=== PATIENT | male | born 1955 | race Caucasian/White ===

== ENCOUNTER 2017-05-28 23:39 | Inpatient (IN) | payer BC ==
[2017-05-28] MEDS ORDERED: Ondansetron 4 MG/2 ML SDV IVPUSH ONE (23:45)
[2017-05-28] MEDS: Sodium Chloride 0.9% 10 ML Syringe FLUSH PRN ×2 (23:52→23:53)
[2017-05-29] MEDS ORDERED: HYDROmorphone 2 MG/ML SDV IVPUSH ONE (00:13)
[2017-05-29] MEDS: Sodium Chloride 0.9% 10 ML Syringe FLUSH PRN (00:37)
[2017-05-29] MEDS ORDERED: Sodium Chloride 0.9% 1,000 ML IV ONE (01:03)
[2017-05-29] MEDS ORDERED: Iopamidol 755 Mg/ML 75 ML Bottle IV ONE (01:30)
[2017-05-29] MEDS ORDERED: Lactated Ringers 1,000 ML IV SCH (03:15)
[2017-05-29] MEDS ORDERED: Albuterol 8 GM Inhaler INH PRN (03:18)
[2017-05-29] MEDS: Ondansetron 4 MG/2 ML SDV IV PRN ×3 (03:42→21:24)
[2017-05-29] MEDS: HYDROmorphone 2 MG/ML SDV IVPUSH PRN ×7 (03:42→21:27)
[2017-05-29] MEDS ORDERED: D5 1/2 NS w/ 20 mEq/L KCl 1,000 ML IV SCH (03:45)
[2017-05-29] MEDS ORDERED: Dextrose 5%-Lactated Ringers 1,000 ML IV SCH (08:00)
[2017-05-29] MEDS: Pantoprazole 40 MG Vial IVPUSH SCH (08:42)
[2017-05-29] MEDS: Dextrose 5%-Lactated Ringers 1,000 ML IV SCH ×3 (08:45→20:01)
[2017-05-29] MEDS ORDERED: Non-Formulary Medication 1 Each (Fluticasone/Salmeterol [Advair 250-50 Diskus] 1 PUFF) INH SCH (09:00)
[2017-05-29] MEDS: Formoterol/Mometasone 200-5 MCG 8.8 GM Inhaler IH SCH ×2 (09:30→21:33)
[2017-05-29] MEDS: Albuterol/Ipratropium 3.0-0.5 MG/3 ML Neb Soln NEB SCH ×4 (10:08→21:35)
[2017-05-29] MEDS ORDERED: FLU Vacc QS 2017-18 (36mos UP)/PF 60 MCG/0.5 ML Syringe IM ONE (10:09)
--- NOTE | 2017-05-29 10:58 | CR ---
INDICATION: Small-bowel obstruction, tube placement. CHEST: A single frontal view of the chest was obtained AP supine and revealed the heart to be normal in size and shape. The aorta is somewhat tortuous. A definite active infiltrate or effusion was not identified. Nasogastric tube is noted looped in the upper third of the esophagus with its end tip in the cervical esophagus - pharynx and the lower portion of the loop just above the frank. IMPRESSION: 1. Retract and replace nasogastric tube. 2. Mild ASD aorta. 3. No definite acute process. MTDD
--- NOTE | 2017-05-29 11:00 | CR ---
INDICATION: Small-bowel obstruction, tube placement. CHEST: A single supine view of the chest was obtained and revealed the nasogastric tube with its tip in the gastric fundus. It should be advanced at least 15 cm for better positioning. No other change is noted compared with the previous examination. MTDD
--- NOTE | 2017-05-29 13:42 | CR ---
INDICATION: COPD. CHEST: PA and lateral views of the chest 05/29/2017 were compared with an earlier chest x-ray obtained supine of the same date. The heart remains normal in size and shape. Minimal calcification may be present in the aorta. Nasogastric tube is noted in place with its tip in the gastric fundus and its secondary - more proximal opening - in the distal esophagus. It should be advanced approximately 15 cm for better positioning. Linear density is noted in the right upper lateral lung field and may represent fibrosis or possibly linear atelectasis. A definite active infiltrate or effusion was not identified. Hyperaeration, AP diameter prominence, and flattened diaphragm leaves suggest COPD. IMPRESSION: 1. No definite acute process - linear atelectasis versus fibrosis right upper lung field. 2. COPD. 3. ASD aorta. MTDD
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
[2017-05-30] MEDS: HYDROmorphone 2 MG/ML SDV IVPUSH PRN ×4 (02:37→13:55)
[2017-05-30] MEDS: Dextrose 5%-Lactated Ringers 1,000 ML IV SCH ×3 (02:42→16:35)
--- NOTE | 2017-05-30 07:14 | PCM.PN ---
- General Info Date of Service: 05/30/17 Admission Dx/Problem (Free Text): Small Bowel Obstruction Functional Status: Reports: Pain Controlled (Occasional moderate pain but mostly comfortable) - Review of Systems General: Denies: Fever Cardiovascular: Reports: No Symptoms Gastrointestinal: Denies: Flatus (No BM) Musculoskeletal: Reports: No Symptoms - Patient Data Vitals - Most Recent: Last Vital Signs Temp 98 F 05/30/17 03:00 Pulse 64 05/30/17 03:00 Resp 20 05/30/17 03:00 BP 122/79 05/30/17 03:00 Pulse Ox 96 05/30/17 03:00 Weight - Most Recent: 110 lb 11.2 oz I&O - Last 24 Hours: Intake & Output 05/29/17 05/30/17 05/30/17 22:59 06:59 14:59 Intake Total 1220 1165 Output Total 525 475 Balance 695 690 Lab Results Last 24 Hours: Laboratory Results - last 24 hr 05/29/17 05/29/17 05/29/17 Range/Units 06:30 06:30 11:08 WBC (4.5-12.0) X10-3/uL RBC (4.30-5.75) x10(6)uL Hgb (11.5-15.5) g/dL Hct (30.0-51.3) % MCV (80-96) fL MCH (27.7-33.6) pg MCHC (32.2-35.4) g/dL RDW (11.5-15.5) % Plt Count (125-369) X10(3)uL MPV (7.4-10.4) fL Neutrophils % (Manual) 84 H (46-82) % Lymphocytes % (Manual) 7 L (13-37) % Monocytes % (Manual) 9 (4-12) % Hypersegmented Neuts Occasional Macrocytosis Moderate H Sodium (135-145) mmol/L Potassium (3.5-5.3) mmol/L Chloride (100-110) mmol/L Carbon Dioxide (23-29) mmol/L BUN (8-23) mg/dL Creatinine (0.6-1.3) mg/dL Est Cr Clr Drug Dosing mL/min Estimated GFR (MDRD) (>60) BUN/Creatinine Ratio (9-20) Glucose (80-116) mg/dL Troponin I 0.05 (0.02-0.06) NG/ML Urine Color Yellow (YELLOW) Urine Appearance Slightly cloudy (CLEAR) Urine pH 6.5 (5.0-6.5) Ur Specific [place] 1.015 (1.010-1.025) Urine Protein Negative (NEGATIVE) mg/dL Urine Glucose (UA) Normal (NEGATIVE) mg/dL Urine Ketones 15 H (NEGATIVE) mg/dL Urine Occult Blood Negative (NEGATIVE) Urine Nitrite Negative (NEGATIVE) Urine Bilirubin Negative (NEGATIVE) Urine Urobilinogen Normal (NEGATIVE) mg/dL Ur Leukocyte Esterase Negative (NEGATIVE) Urine RBC 0-5 (0) Urine WBC 0-5 (0) Ur Squamous Epith Cells Rare (NS,R,O) Urine Bacteria Rare H (NS) Urine Mucus Few H (NS) 05/30/17 05/30/17 Range/Units 06:10 06:10 WBC 10.8 (4.5-12.0) X10-3/uL RBC 4.18 L (4.30-5.75) x10(6)uL Hgb 15.1 (11.5-15.5) g/dL Hct 43.3 (30.0-51.3) % MCV 103.5 H (80-96) fL MCH 36.0 H (27.7-33.6) pg MCHC 34.8 (32.2-35.4) g/dL RDW 13.3 (11.5-15.5) % Plt Count 166 (125-369) X10(3)uL MPV 8.3 (7.4-10.4) fL Neutrophils % (Manual) (46-82) % Lymphocytes % (Manual) (13-37) % Monocytes % (Manual) (4-12) % Hypersegmented Neuts Macrocytosis Sodium 130 L (135-145) mmol/L Potassium 3.8 (3.5-5.3) mmol/L Chloride 97 L (100-110) mmol/L Carbon Dioxide 28 (23-29) mmol/L BUN 7 L (8-23) mg/dL Creatinine 0.7 (0.6-1.3) mg/dL Est Cr Clr Drug Dosing 79.70 mL/min Estimated GFR (MDRD) > 60 (>60) BUN/Creatinine Ratio 10.0 (9-20) Glucose 138 H (80-116) mg/dL Troponin I (0.02-0.06) NG/ML Urine Color (YELLOW) Urine Appearance (CLEAR) Urine pH (5.0-6.5) Ur Specific [place] (1.010-1.025) Urine Protein (NEGATIVE) mg/dL Urine Glucose (UA) (NEGATIVE) mg/dL Urine Ketones (NEGATIVE) mg/dL Urine Occult Blood (NEGATIVE) Urine Nitrite (NEGATIVE) Urine Bilirubin (NEGATIVE) Urine Urobilinogen (NEGATIVE) mg/dL Ur Leukocyte Esterase (NEGATIVE) Urine RBC (0) Urine WBC (0) Ur Squamous Epith Cells (NS,R,O) Urine Bacteria (NS) Urine Mucus (NS) Med Orders - Current: Current Medications Albuterol (Ventolin Hfa) 0 gm INH Q4H PRN PRN Reason: Dyspnea Albuterol/Ipratropium (Duoneb 3.0-0.5 Mg/3 Ml) 3 ml NEB QIDRT [facility] Last Admin: 05/29/17 21:35 Dose: 3 ml Hydromorphone HCl (Dilaudid) 1 mg IVPUSH Q2H PRN PRN Reason: Pain (severe 7-10) Last Admin: 05/30/17 06:20 Dose: 1 mg Dextrose/Lactated Ringer's (Dextrose 5%-Lactated Ringers) 1,000 mls @ 150 mls/ hr IV ASDIRECTED [facility] Last Admin: 05/30/17 02:42 Dose: 200 mls/hr Mometasone Furoate/Formoterol Fumar (Dulera 200-5 Mcg) 0 puff IH BID [facility] Last Admin: 05/29/17 21:33 Dose: 1 puff Ondansetron HCl (Zofran) 4 mg IV Q4H PRN PRN Reason: Nausea/Vomiting Last Admin: 05/29/17 21:24 Dose: 4 mg Pantoprazole Sodium (Protonix Iv) 40 mg IVPUSH DAILY [facility] Last Admin: 05/29/17 08:42 Dose: 40 mg Sodium Chloride (Saline Flush) 10 ml FLUSH ASDIRECTED PRN PRN Reason: Keep Vein Open Last Admin: 05/29/17 00:37 Dose: 10 ml Discontinued Medications Hydromorphone HCl (Dilaudid) 2 mg IVPUSH ONETIME ONE Stop: 05/29/17 00:14 Last Admin: 05/29/17 00:35 Dose: 2 mg Sodium Chloride (Normal Saline) 1,000 mls @ 999 mls/hr IV .BOLUS ONE Stop: 05/29/17 02:03 Last Admin: 05/29/17 01:18 Dose: 999 mls/hr Lactated Ringer's (Ringers, Lactated) 1,000 mls @ 999 mls/hr IV .BOLUS ZACH Last Admin: 05/29/17 03:39 Dose: 999 mls/hr Potassium Chloride/Dextrose/Sod Cl (D5 1/2 Ns W/ 20 Meq/L Kcl) 1,000 mls @ 100 mls/hr IV ASDIRECTED [facility] Last Admin: 05/29/17 04:50 Dose: 100 mls/hr Dextrose/Lactated Ringer's (Dextrose 5%-Lr) 1,000 mls @ 200 mls/hr IV ASDIRECTED [facility] Influenza Virus Vaccine (Fluzone Quad [id number]) 60 mcg IM .ONCE ONE Stop: 05/29/17 10:10 Iopamidol (Isovue-370 (76%)) 75 ml IV ONETIME ONE Stop: 05/29/17 01:31 Last Admin: 05/29/17 02:00 Dose: 65 ml Non-Formulary Medication (Fluticasone/Salmeterol [Advair 250-50 Diskus]) 1 puff INH BID [facility] Ondansetron HCl (Zofran) 4 mg IVPUSH ONETIME ONE Stop: 05/28/17 23:46 Last Admin: 05/28/17 23:52 Dose: 4 mg - Exam General: Alert, Oriented Lungs: Normal Respiratory Effort GI/Abdominal Exam: Soft, Distended (Mildly firm, minimal tenderness with no guarding), Abnormal Bowel Sounds (hypoactive) - Problem List Review Problem List Initiated/Reviewed/Updated: Yes - My Orders Last 24 Hours: My Active Orders 05/29/17 08:51 Dextrose 5%-Lactated Ringers 1,000 ml IV ASDIRECTED 05/29/17 09:00 Pantoprazole [ProTONIX IV] 40 mg IVPUSH DAILY 05/29/17 14:45 Insert Urinary Catheter [OM.PC] Q24H 05/30/17 06:10 CBC WITH MANUAL DIFF [HEME] AM - Assessment Assessment:: Small bowel obstruction - NG output low but no flatus or BM - Plan Plan:: Will observe with continued NG suction and IV hydration for now but if no improvement soon will need laparotomy
[2017-05-30] MEDS: Albuterol/Ipratropium 3.0-0.5 MG/3 ML Neb Soln NEB SCH ×6 (07:23→22:50)
[2017-05-30] MEDS: Formoterol/Mometasone 200-5 MCG 8.8 GM Inhaler IH SCH ×2 (08:12→22:55)
[2017-05-30] MEDS: Pantoprazole 40 MG Vial IVPUSH SCH (08:13)
--- NOTE | 2017-05-30 17:01 | PCM.PN ---
- General Info Date of Service: 05/30/17 - Review of Systems Systems Review Comment:: Patient states he feels a little better but continues to have no BM or flatus. Abdomen soft with no tenderness but remains distended. NG output remains low to moderate. With continued obstipation it appears that the patient's obstruction is not resolving with attempted conservative management. I advised laparotomy with release of small bowel obstruction. I reviewed with the patient indications options and risks. He appears to understand and agrees to proceed. Will proceed tonight with this proposed surgery. - Patient Data Vitals - Most Recent: Last Vital Signs Temp 97.7 F 05/30/17 16:00 Pulse 80 05/30/17 15:26 Resp 18 05/30/17 16:00 BP 121/80 05/30/17 16:00 Pulse Ox 93 L 05/30/17 16:00 Weight - Most Recent: 110 lb 11.2 oz I&O - Last 24 Hours: Intake & Output 05/30/17 05/30/17 05/30/17 06:59 14:59 22:59 Intake Total 1165 1268 Output Total 475 675 200 Balance 690 593 -200 Lab Results Last 24 Hours: Laboratory Results - last 24 hr 05/30/17 05/30/17 Range/Units 06:10 06:10 WBC 10.8 (4.5-12.0) X10-3/uL RBC 4.18 L (4.30-5.75) x10(6)uL Hgb 15.1 (11.5-15.5) g/dL Hct 43.3 (30.0-51.3) % MCV 103.5 H (80-96) fL MCH 36.0 H (27.7-33.6) pg MCHC 34.8 (32.2-35.4) g/dL RDW 13.3 (11.5-15.5) % Plt Count 166 (125-369) X10(3)uL MPV 8.3 (7.4-10.4) fL Neutrophils % (Manual) 78 (46-82) % Lymphocytes % (Manual) 14 (13-37) % Monocytes % (Manual) 8 (4-12) % Macrocytosis Moderate H Sodium 130 L (135-145) mmol/L Potassium 3.8 (3.5-5.3) mmol/L Chloride 97 L (100-110) mmol/L Carbon Dioxide 28 (23-29) mmol/L BUN 7 L (8-23) mg/dL Creatinine 0.7 (0.6-1.3) mg/dL Est Cr Clr Drug Dosing 79.70 mL/min Estimated GFR (MDRD) > 60 (>60) BUN/Creatinine Ratio 10.0 (9-20) Glucose 138 H (80-116) mg/dL Calcium 8.2 L (8.6-10.2) mg/dL Med Orders - Current: Current Medications Albuterol (Ventolin Hfa) 0 gm INH Q4H PRN PRN Reason: Dyspnea Albuterol/Ipratropium (Duoneb 3.0-0.5 Mg/3 Ml) 3 ml NEB QIDRT [facility] Last Admin: 05/30/17 15:25 Dose: 3 ml Hydromorphone HCl (Dilaudid) 1 mg IVPUSH Q2H PRN PRN Reason: Pain (severe 7-10) Last Admin: 05/30/17 13:55 Dose: 1 mg Dextrose/Lactated Ringer's (Dextrose 5%-Lactated Ringers) 1,000 mls @ 150 mls/ hr IV ASDIRECTED [facility] Last Admin: 05/30/17 16:35 Dose: 150 mls/hr Mometasone Furoate/Formoterol Fumar (Dulera 200-5 Mcg) 0 puff IH BID [facility] Last Admin: 05/30/17 08:12 Dose: 2 puff Ondansetron HCl (Zofran) 4 mg IV Q4H PRN PRN Reason: Nausea/Vomiting Last Admin: 05/29/17 21:24 Dose: 4 mg Pantoprazole Sodium (Protonix Iv) 40 mg IVPUSH DAILY [facility] Last Admin: 05/30/17 08:13 Dose: 40 mg Sodium Chloride (Saline Flush) 10 ml FLUSH ASDIRECTED PRN PRN Reason: Keep Vein Open Last Admin: 05/29/17 00:37 Dose: 10 ml Discontinued Medications Hydromorphone HCl (Dilaudid) 2 mg IVPUSH ONETIME ONE Stop: 05/29/17 00:14 Last Admin: 05/29/17 00:35 Dose: 2 mg Sodium Chloride (Normal Saline) 1,000 mls @ 999 mls/hr IV .BOLUS ONE Stop: 05/29/17 02:03 Last Admin: 05/29/17 01:18 Dose: 999 mls/hr Lactated Ringer's (Ringers, Lactated) 1,000 mls @ 999 mls/hr IV .BOLUS [facility] Last Admin: 05/29/17 03:39 Dose: 999 mls/hr Potassium Chloride/Dextrose/Sod Cl (D5 1/2 Ns W/ 20 Meq/L Kcl) 1,000 mls @ 100 mls/hr IV ASDIRECTED [facility] Last Admin: 05/29/17 04:50 Dose: 100 mls/hr Dextrose/Lactated Ringer's (Dextrose 5%-Lr) 1,000 mls @ 200 mls/hr IV ASDIRECTED [facility] Influenza Virus Vaccine (Fluzone Quad [id number]) 60 mcg IM .ONCE ONE Stop: 05/29/17 10:10 Iopamidol (Isovue-370 (76%)) 75 ml IV ONETIME ONE Stop: 05/29/17 01:31 Last Admin: 05/29/17 02:00 Dose: 65 ml Non-Formulary Medication (Fluticasone/Salmeterol [Advair 250-50 Diskus]) 1 puff INH BID [facility] Ondansetron HCl (Zofran) 4 mg IVPUSH ONETIME ONE Stop: 05/28/17 23:46 Last Admin: 05/28/17 23:52 Dose: 4 mg - Problem List Review Problem List Initiated/Reviewed/Updated: Yes - Assessment Assessment:: Small bowel obstruction -not improving - Plan Plan:: Laparotomy with Release of Small Bowel Obstruction
[2017-05-30] MEDS ORDERED: ceFAZolin 1 GM Vial IV ONE (18:00)
[2017-05-30] MEDS ORDERED: Neostigmine Methylsulfate 10 MG/10 ML MDV IVPUSH ONE (18:00)
[2017-05-30] MEDS ORDERED: Dexamethasone 4 MG/ML 5 ML MDV IVPUSH ONE (18:00)
[2017-05-30] MEDS ORDERED: Succinylcholine 200 MG/10 ML MDV IV ONE (18:00)
[2017-05-30] MEDS ORDERED: Lactated Ringers 1,000 ML IV ONE (18:00)
[2017-05-30] MEDS ORDERED: Midazolam 1 MG/ML 2 ML SDV IV ONE (18:00)
[2017-05-30] MEDS ORDERED: Ketorolac 30 MG/ML SDV IVPUSH ONE (18:00)
[2017-05-30] MEDS ORDERED: fentaNYL 100 MCG/2 ML SDV IV ONE (18:00)
[2017-05-30] MEDS ORDERED: Ondansetron 4 MG/2 ML SDV IVPUSH ONE (18:00)
[2017-05-30] MEDS ORDERED: Rocuronium 100 MG/10 ML MDV IV ONE (18:00)
[2017-05-30] MEDS ORDERED: Propofol 200 MG/20 ML SDV IV ONE (18:00)
[2017-05-30] MEDS ORDERED: Glycopyrrolate 0.2 MG/ML 5 ML MDV IV ONE (18:00)
[2017-05-30] MEDS ORDERED: Sodium Chloride 0.9% 500 ML IV ONE (18:00)
[2017-05-30] MEDS ORDERED: Phenylephrine 1% 10 MG/ML SDV IV ONE (18:00)
[2017-05-30] MEDS ORDERED: Ondansetron 4 MG/2 ML SDV IVPUSH PRN (20:41)
--- NOTE | 2017-05-30 20:41 | PCM.OPNOTE ---
- General Post-Op/Procedure Note Date of Surgery/Procedure: 05/30/17 Operative Procedure(s): Exploratory Laparotomy with Lysis of Adhesions Findings: Complete small bowel obstruction from adhesions Thin abdominal wall post hernia repair Pre Op Diagnosis: Small Bowel Obstruction Post-Op Diagnosis: Same Anesthesia Technique: General ET Tube Primary Surgeon: Oliver Tellez Pathology: Adhesion EBL in mLs: 300 Complications: None Condition: Good Free Text/Narrative:: Intake & Output 05/30/17 05/30/17 05/30/17 06:59 14:59 22:59 Intake Total 1165 1268 Output Total 475 675 200 Balance 690 593 -200
[2017-05-30] MEDS ORDERED: Morphine PF 30 MG/30 ML PCA Vial IV SCH (20:45)
[2017-05-30] MEDS ORDERED: Morphine 2 MG/ML Syringe IVPUSH PRN (20:57)
[2017-05-30] MEDS ORDERED: ceFAZolin 1 GM in Sodium Chloride 0.9% 50 ML IV SCH (21:00)
[2017-05-31] MEDS: Morphine 2 MG/ML Syringe IVPUSH PRN ×7 (00:09→19:31)
--- NOTE | 2017-05-31 01:14 | OR ---
DATE OF OPERATION: 05/30/2017 SURGEON: Oliver Tellez MD PREOPERATIVE DIAGNOSIS: Small bowel obstruction. POSTOPERATIVE DIAGNOSIS: Small bowel obstruction secondary to adhesions. OPERATION PERFORMED: Exploratory laparotomy with lysis of adhesions. INDICATIONS FOR SURGERY: This 61-year-old male presented to the emergency room with symptoms of abdominal pain and vomiting. A CT scan was performed, which showed findings consistent with a small-bowel obstruction. The patient was admitted and has been observed on NG suction and IV hydration. Despite a period of observation, his obstruction has not relieved and he comes for exploratory laparotomy. FINDINGS: The patient has a complete obstruction in the region of the proximal ileum. The bowel proximal to this is dilated and distal to that is completely flat and decompressed. The bowel did appear to be vascularly viable, but there were extensive and thick adhesions in the area of the obstruction and along other areas of the small bowel. The patient's abdominal wall is very thin and required extensive dissection to separate the skin off the fascia, which had previously been reinforced with mesh from a previous hernia repair. PROCEDURE IN DETAIL: The patient was taken to the operating room. He was given general endotracheal anesthesia and the abdomen was sterilely prepped and draped. A short vertical midline incision was made and carefully dissection proceeded down through the fascia into the abdominal cavity. With very careful dissection, the bowel and omentum were gradually from the anterior abdominal wall and as clear space was achieved, the abdominal wall incision was extended until it had reached an adequate length for exploration. Carefully, the small bowel was examined, able to be mobilized, and with persistent careful manipulation and lysis of adhesions, loops of bowel were able to be brought out of the abdominal cavity. Eventually, the dilated and collapsed bowel at the point of obstruction was able to be brought out. The small bowel was then carefully examined along its entire length and adhesions divided to be sure no points of obstruction remained. The fluid inside the small bowel was milked easily from the dilated portion into the more distal bowel loops indicating no intrinsic obstruction. After the adhesions had been lysed and careful inspection showed no sign of any bowel injury or other complication, the bowel was carefully placed back into the abdominal cavity. The patient's abdominal wall was very thin as described above and so a considerable time was taken carefully dissecting the skin off the thin abdominal wall fascia. This required very precise sharp dissection along the entire course of the incision until the intact but very thin fascia was able to be exposed adequately for closure. Adhesions to the undersurface of the fascia were also taken down, so placement of the sutures could be safely performed. The abdominal cavity was then copiously irrigated with saline and then the midline fascia was closed with interrupted #1 PDS II suture in a Smead-Uribe suturing technique. This did achieve a complete and what appeared to be solid closure of the midline fascia. The wound was then again irrigated and the skin was closed with skin chad. A sterile dressing was placed. The patient was awakened, extubated, and taken from the operating room in satisfactory condition. ESTIMATED BLOOD LOSS: 300 mL. COMPLICATIONS: None. PROGNOSIS: Good. /[id number] CHRIS/BREE PETERS
[2017-05-31] MEDS: ceFAZolin 1 GM in Sodium Chloride 0.9% 50 ML IV SCH ×2 (02:25→09:54)
[2017-05-31] MEDS: Lactated Ringers 1,000 ML IV SCH ×3 (04:28→20:32)
--- NOTE | 2017-05-31 07:41 | PCM.SURGPN ---
- General Info Date of Service: 05/31/17 Date of Surgery/Procedure: 05/30/17 POD#: 1 Post-Op Diagnosis: Small Bowel Obstruction secondary to adhesions Functional Status: Reports: Pain Controlled (Doing well with only intermittant MS IV) - Review of Systems Pulmonary: Reports: No Symptoms Cardiovascular: Reports: No Symptoms Gastrointestinal: Reports: Other (States abdomen feels better then pre-op). Denies: Flatus, Nausea, Vomiting Musculoskeletal: Reports: No Symptoms - Patient Data Vitals - Most Recent: Last Vital Signs Temp 98.9 F 05/31/17 04:19 Pulse 84 05/31/17 04:19 Resp 16 05/31/17 04:19 BP 90/56 L 05/31/17 04:19 Pulse Ox 95 05/31/17 04:19 Weight - Most Recent: 114 lb I&O - Last 24 Hours: Intake & Output 05/30/17 05/31/17 05/31/17 22:59 06:59 14:59 Intake Total 570 1090 Output Total 200 775 Balance 370 315 Lab Results Last 24 Hrs: Laboratory Results - last 24 hr 05/30/17 05/30/17 05/31/17 Range/Units 06:10 06:10 06:15 WBC 8.5 (4.5-12.0) X10-3/uL RBC 3.68 L (4.30-5.75) x10(6)uL Hgb 13.1 (11.5-15.5) g/dL Hct 38.4 (30.0-51.3) % MCV 104.4 H (80-96) fL MCH 35.6 H (27.7-33.6) pg MCHC 34.1 (32.2-35.4) g/dL RDW 12.9 (11.5-15.5) % Plt Count 147 (125-369) X10(3)uL Neutrophils % (Manual) 78 (46-82) % Lymphocytes % (Manual) 14 (13-37) % Monocytes % (Manual) 8 (4-12) % Macrocytosis Moderate H Potassium (3.5-5.3) mmol/L Calcium 8.2 L (8.6-10.2) mg/dL 05/31/17 Range/Units 06:15 WBC (4.5-12.0) X10-3/uL RBC (4.30-5.75) x10(6)uL Hgb (11.5-15.5) g/dL Hct (30.0-51.3) % MCV (80-96) fL MCH (27.7-33.6) pg MCHC (32.2-35.4) g/dL RDW (11.5-15.5) % Plt Count (125-369) X10(3)uL Neutrophils % (Manual) (46-82) % Lymphocytes % (Manual) (13-37) % Monocytes % (Manual) (4-12) % Macrocytosis Potassium 4.2 (3.5-5.3) mmol/L Calcium (8.6-10.2) mg/dL Med Orders - Current: Current Medications Albuterol (Ventolin Hfa) 0 gm INH Q4H PRN PRN Reason: Dyspnea Albuterol/Ipratropium (Duoneb 3.0-0.5 Mg/3 Ml) 3 ml NEB QIDRT [facility] Last Admin: 05/30/17 22:50 Dose: 3 ml Enoxaparin Sodium (Lovenox) 30 mg SUBCUT DAILY [facility] Lactated Ringer's (Ringers, Lactated) 1,000 mls @ 125 mls/hr IV ASDIRECTED [facility] Last Admin: 05/31/17 04:28 Dose: 125 mls/hr Cefazolin Sodium 1 gm/ Sodium (Chloride) 50 mls @ 200 mls/hr IV Q8H [facility] Stop: 05/31/17 10:14 Last Admin: 05/31/17 02:25 Dose: 200 mls/hr Mometasone Furoate/Formoterol Fumar (Dulera 200-5 Mcg) 0 puff IH BID [facility] Last Admin: 05/30/17 22:55 Dose: 2 puff Morphine Sulfate (Morphine) 2 mg IVPUSH Q1H PRN PRN Reason: Pain (severe 7-10) Last Admin: 05/31/17 06:12 Dose: 2 mg Morphine Sulfate (Morphine Buyer Broker 30 Mg In 30 Ml) 30 mg IV ASDIRECTED [facility] PRN Reason: Protocol Ondansetron HCl (Zofran) 4 mg IVPUSH Q6H PRN PRN Reason: Nausea/Vomiting Pantoprazole Sodium (Protonix Iv) 40 mg IVPUSH DAILY [facility] Sodium Chloride (Saline Flush) 10 ml FLUSH ASDIRECTED PRN PRN Reason: Keep Vein Open Last Admin: 05/29/17 00:37 Dose: 10 ml Discontinued Medications Albuterol/Ipratropium (Duoneb 3.0-0.5 Mg/3 Ml) 3 ml NEB QIDRT [facility] Last Admin: 05/30/17 22:45 Dose: Not Given Hydromorphone HCl (Dilaudid) 2 mg IVPUSH ONETIME ONE Stop: 05/29/17 00:14 Last Admin: 05/29/17 00:35 Dose: 2 mg Hydromorphone HCl (Dilaudid) 1 mg IVPUSH Q2H PRN PRN Reason: Pain (severe 7-10) Last Admin: 05/30/17 13:55 Dose: 1 mg Sodium Chloride (Normal Saline) 1,000 mls @ 999 mls/hr IV .BOLUS ONE Stop: 05/29/17 02:03 Last Admin: 05/29/17 01:18 Dose: 999 mls/hr Lactated Ringer's (Ringers, Lactated) 1,000 mls @ 999 mls/hr IV .BOLUS [facility] Last Admin: 05/29/17 03:39 Dose: 999 mls/hr Potassium Chloride/Dextrose/Sod Cl (D5 1/2 Ns W/ 20 Meq/L Kcl) 1,000 mls @ 100 mls/hr IV ASDIRECTED [facility] Last Admin: 05/29/17 04:50 Dose: 100 mls/hr Dextrose/Lactated Ringer's (Dextrose 5%-Lr) 1,000 mls @ 200 mls/hr IV ASDIRECTED [facility] Dextrose/Lactated Ringer's (Dextrose 5%-Lactated Ringers) 1,000 mls @ 150 mls/ hr IV ASDIRECTED [facility] Last Admin: 05/30/17 16:35 Dose: 150 mls/hr Cefazolin Sodium 1 gm/ Sodium (Chloride) 50 mls @ 200 mls/hr IV Q8H [facility] Stop: 05/31/17 05:14 Last Admin: 05/30/17 22:44 Dose: Not Given Influenza Virus Vaccine (Fluzone Quad [id number]) 60 mcg IM .ONCE ONE Stop: 05/29/17 10:10 Iopamidol (Isovue-370 (76%)) 75 ml IV ONETIME ONE Stop: 05/29/17 01:31 Last Admin: 05/29/17 02:00 Dose: 65 ml Morphine Sulfate (Morphine) 2 mg IVPUSH Q3M PRN PRN Reason: Abdominal Pain Non-Formulary Medication (Fluticasone/Salmeterol [Advair 250-50 Diskus]) 1 puff INH BID [facility] Ondansetron HCl (Zofran) 4 mg IVPUSH ONETIME ONE Stop: 05/28/17 23:46 Last Admin: 05/28/17 23:52 Dose: 4 mg Ondansetron HCl (Zofran) 4 mg IV Q4H PRN PRN Reason: Nausea/Vomiting Last Admin: 05/29/17 21:24 Dose: 4 mg Pantoprazole Sodium (Protonix Iv) 40 mg IVPUSH DAILY [facility] Last Admin: 05/30/17 08:13 Dose: 40 mg - Exam Wound/Incisions: Healing Well, Drainage (Moderate post surgical drainage), Other (Moderate bruising superiorly and inferiorly) General: Alert, Oriented Lungs: Normal Respiratory Effort GI/Abdominal Exam: Soft, Distended (less so then pre-op) Extremities: No Pedal Edema, Other (no calf tenderness) - Problem List Review Problem List Initiated/Reviewed/Updated: Yes - My Orders Last 24 Hours: Active Orders 24 hr Category Date Time Status Patient Status [ADT] Routine ADT 05/30/17 20:42 Active Ambulate [RC] ASDIRECTED Care 05/30/17 20:41 Active Antiembolic Devices [RC] .Routine Care 05/30/17 20:46 Active Gastrointestinal Tube Mgmt [RC] QSHIFT Care 05/30/17 20:41 Active Intake and Output [RC] 06,14,22 Care 05/30/17 20:44 Active Notify Provider Intake and Out [RC] PRN Care 05/30/17 20:44 Active Oxygen Therapy [RC] PRN Care 05/30/17 20:42 Active RT Aerosol Therapy [RC] ASDIRECTED Care 05/30/17 20:51 Active RT Incentive Spirometry [RC] Q1HWA Care 05/30/17 20:41 Active VTE/DVT Education [RC] Click to Edit Care 05/30/17 20:46 Active Vital Signs [RC] 08,12,16,20,00,04 Care 05/30/17 20:42 Active Albuterol/Ipratropium [DuoNeb 3.0-0.5 MG/3 ML] Med 05/30/17 20:45 Active 3 ml NEB QIDRT Enoxaparin [Lovenox] Med 05/31/17 09:00 Active 30 mg SUBCUT DAILY Lactated Ringers [Ringers, Lactated] 1,000 ml Med 05/30/17 20:45 Active IV ASDIRECTED Morphine Med 05/30/17 20:41 Active 2 mg IVPUSH Q1H PRN Morphine PF [Morphine [employer] 30 MG in 30 ML] Med 05/30/17 20:45 Active 30 mg IV ASDIRECTED Ondansetron [Zofran] Med 05/30/17 20:41 Active 4 mg IVPUSH Q6H PRN Pantoprazole [ProTONIX IV] Med 05/31/17 09:00 Active 40 mg IVPUSH DAILY ceFAZolin [Ancef] 1 gm Med 05/31/17 02:00 Active Sodium Chloride 0.9% [Normal Saline] 50 ml IV Q8H DVT/VTE Prophylaxis Reflex [OM.PC] Per Unit Routine Oth 05/30/17 20:46 Ordered Medication Orders Albuterol (Ventolin Hfa) 0 gm INH Q4H PRN PRN Reason: Dyspnea Albuterol/Ipratropium (Duoneb 3.0-0.5 Mg/3 Ml) 3 ml NEB QIDRT [facility] Last Admin: 05/30/17 22:50 Dose: 3 ml Admin: 05/30/17 22:44 Dose: Enoxaparin Sodium (Lovenox) 30 mg SUBCUT DAILY [facility] Lactated Ringer's (Ringers, Lactated) 1,000 mls @ 125 mls/hr IV ASDIRECTED [facility] Last Admin: 05/31/17 04:28 Dose: 125 mls/hr Cefazolin Sodium 1 gm/ Sodium (Chloride) 50 mls @ 200 mls/hr IV Q8H [facility] Stop: 05/31/17 10:14 Last Admin: 05/31/17 02:25 Dose: 200 mls/hr Mometasone Furoate/Formoterol Fumar (Dulera 200-5 Mcg) 0 puff IH BID [facility] Last Admin: 05/30/17 22:55 Dose: 2 puff Admin: 05/30/17 08:12 Dose: 2 puff Admin: 05/29/17 21:33 Dose: 1 puff Admin: 05/29/17 09:30 Dose: 2 puff Morphine Sulfate (Morphine) 2 mg IVPUSH Q1H PRN PRN Reason: Pain (severe 7-10) Last Admin: 05/31/17 06:12 Dose: 2 mg Admin: 05/31/17 02:20 Dose: 2 mg Admin: 05/31/17 00:09 Dose: 2 mg Morphine Sulfate (Morphine Buyer Broker 30 Mg In 30 Ml) 30 mg IV ASDIRECTED [facility] PRN Reason: Protocol Ondansetron HCl (Zofran) 4 mg IVPUSH Q6H PRN PRN Reason: Nausea/Vomiting Pantoprazole Sodium (Protonix Iv) 40 mg IVPUSH DAILY [facility] Sodium Chloride (Saline Flush) 10 ml FLUSH ASDIRECTED PRN PRN Reason: Keep Vein Open Last Admin: 05/29/17 00:37 Dose: 10 ml Admin: 05/28/17 23:53 Dose: 10 ml Admin: 05/28/17 23:52 Dose: 10 ml - Assessment Assessment (Free Text/Narrative):: POD#1 Enterolysis for SBO - doing well Labs and VS stable Wound satisfactory at this time - Plan Plan (Free Text/Narrative):: Continue NPO and NG Begin Lovenox Encourage ambulation
[2017-05-31] MEDS: Albuterol/Ipratropium 3.0-0.5 MG/3 ML Neb Soln NEB SCH ×4 (08:10→20:28)
[2017-05-31] MEDS: Formoterol/Mometasone 200-5 MCG 8.8 GM Inhaler IH SCH ×2 (08:30→20:28)
[2017-05-31] MEDS: Pantoprazole 40 MG Vial IVPUSH SCH (08:32)
[2017-05-31] MEDS: Enoxaparin 30 MG/0.3 ML Syringe SUBCUT SCH (08:35)
[2017-06-01] MEDS: Morphine 2 MG/ML Syringe IVPUSH PRN ×4 (01:22→07:32)
[2017-06-01] MEDS: Lactated Ringers 1,000 ML IV SCH ×2 (06:04→18:35)
[2017-06-01] MEDS: Albuterol/Ipratropium 3.0-0.5 MG/3 ML Neb Soln NEB SCH ×4 (07:03→20:33)
--- NOTE | 2017-06-01 08:24 | PCM.SURGPN ---
- General Info Date of Service: 06/01/17 Date of Surgery/Procedure: 05/30/17 POD#: 2 Post-Op Diagnosis: Small Bowel Obstruction Functional Status: Reports: Pain Controlled (using moderate amounts of MS and having some gas pain and pain with activity) - Review of Systems Pulmonary: Reports: No Symptoms (using IS and getting Nebs) Gastrointestinal: Reports: Other (some gas pains but less distension). Denies: Flatus Musculoskeletal: Reports: Other (denies muscle pain) - Patient Data Vitals - Most Recent: Last Vital Signs Temp 97.6 F 06/01/17 07:45 Pulse 83 06/01/17 07:45 Resp 18 06/01/17 07:45 BP 99/61 06/01/17 07:45 Pulse Ox 92 L 06/01/17 07:45 Weight - Most Recent: 114 lb I&O - Last 24 Hours: Intake & Output 05/31/17 06/01/17 06/01/17 22:59 06:59 14:59 Intake Total 886 846 Output Total 900 2250 Balance -14 -1404 Lab Results Last 24 Hrs: Laboratory Results - last 24 hr 06/01/17 06/01/17 Range/Units 06:00 06:00 Sodium 135 (135-145) mmol/L Potassium 3.8 (3.5-5.3) mmol/L Med Orders - Current: Current Medications Albuterol (Ventolin Hfa) 0 gm INH Q4H PRN PRN Reason: Dyspnea Albuterol/Ipratropium (Duoneb 3.0-0.5 Mg/3 Ml) 3 ml NEB QIDRT [facility] Last Admin: 06/01/17 07:03 Dose: 3 ml Enoxaparin Sodium (Lovenox) 30 mg SUBCUT DAILY [facility] Last Admin: 05/31/17 08:35 Dose: 30 mg Lactated Ringer's (Ringers, Lactated) 1,000 mls @ 75 mls/hr IV ASDIRECTED [facility] Last Admin: 06/01/17 06:04 Dose: 100 mls/hr Ketorolac Tromethamine (Toradol) 15 mg IVPUSH Q6H [facility] Mometasone Furoate/Formoterol Fumar (Dulera 200-5 Mcg) 0 puff IH BID [facility] Last Admin: 05/31/17 20:28 Dose: 2 puff Morphine Sulfate (Morphine) 2 mg IVPUSH Q1H PRN PRN Reason: Pain (severe 7-10) Last Admin: 06/01/17 07:32 Dose: 2 mg Ondansetron HCl (Zofran) 4 mg IVPUSH Q6H PRN PRN Reason: Nausea/Vomiting Pantoprazole Sodium (Protonix Iv) 40 mg IVPUSH DAILY [facility] Last Admin: 05/31/17 08:32 Dose: 40 mg Sodium Chloride (Saline Flush) 10 ml FLUSH ASDIRECTED PRN PRN Reason: Keep Vein Open Last Admin: 05/29/17 00:37 Dose: 10 ml Discontinued Medications Albuterol/Ipratropium (Duoneb 3.0-0.5 Mg/3 Ml) 3 ml NEB QIDRT [facility] Last Admin: 05/30/17 22:45 Dose: Not Given Hydromorphone HCl (Dilaudid) 2 mg IVPUSH ONETIME ONE Stop: 05/29/17 00:14 Last Admin: 05/29/17 00:35 Dose: 2 mg Hydromorphone HCl (Dilaudid) 1 mg IVPUSH Q2H PRN PRN Reason: Pain (severe 7-10) Last Admin: 05/30/17 13:55 Dose: 1 mg Sodium Chloride (Normal Saline) 1,000 mls @ 999 mls/hr IV .BOLUS ONE Stop: 05/29/17 02:03 Last Admin: 05/29/17 01:18 Dose: 999 mls/hr Lactated Ringer's (Ringers, Lactated) 1,000 mls @ 999 mls/hr IV .BOLUS [facility] Last Admin: 05/29/17 03:39 Dose: 999 mls/hr Potassium Chloride/Dextrose/Sod Cl (D5 1/2 Ns W/ 20 Meq/L Kcl) 1,000 mls @ 100 mls/hr IV ASDIRECTED [facility] Last Admin: 05/29/17 04:50 Dose: 100 mls/hr Dextrose/Lactated Ringer's (Dextrose 5%-Lr) 1,000 mls @ 200 mls/hr IV ASDIRECTED [facility] Dextrose/Lactated Ringer's (Dextrose 5%-Lactated Ringers) 1,000 mls @ 150 mls/ hr IV ASDIRECTED [facility] Last Admin: 05/30/17 16:35 Dose: 150 mls/hr Cefazolin Sodium 1 gm/ Sodium (Chloride) 50 mls @ 200 mls/hr IV Q8H [facility] Stop: 05/31/17 05:14 Last Admin: 05/30/17 22:44 Dose: Not Given Cefazolin Sodium 1 gm/ Sodium (Chloride) 50 mls @ 200 mls/hr IV Q8H [facility] Stop: 05/31/17 10:14 Last Admin: 05/31/17 09:54 Dose: 200 mls/hr Influenza Virus Vaccine (Fluzone Quad [id number]) 60 mcg IM .ONCE ONE Stop: 05/29/17 10:10 Iopamidol (Isovue-370 (76%)) 75 ml IV ONETIME ONE Stop: 05/29/17 01:31 Last Admin: 05/29/17 02:00 Dose: 65 ml Morphine Sulfate (Morphine Materials Planner/Production Planner 30 Mg In 30 Ml) 30 mg IV ASDIRECTED [facility] PRN Reason: Protocol Morphine Sulfate (Morphine) 2 mg IVPUSH Q3M PRN PRN Reason: Abdominal Pain Non-Formulary Medication (Fluticasone/Salmeterol [Advair 250-50 Diskus]) 1 puff INH BID [facility] Ondansetron HCl (Zofran) 4 mg IVPUSH ONETIME ONE Stop: 05/28/17 23:46 Last Admin: 05/28/17 23:52 Dose: 4 mg Ondansetron HCl (Zofran) 4 mg IV Q4H PRN PRN Reason: Nausea/Vomiting Last Admin: 05/29/17 21:24 Dose: 4 mg Pantoprazole Sodium (Protonix Iv) 40 mg IVPUSH DAILY [facility] Last Admin: 05/30/17 08:13 Dose: 40 mg - Exam Wound/Incisions: Healing Well, No Drainage, Other (Mild bruising) General: Alert, Oriented GI/Abdominal Exam: Soft, Other (mild tenderness diffusely but softer with less distension today) Extremities: Non-Tender (no calf tenderness), No Pedal Edema Psy/Mental Status: Alert, Normal Affect - Problem List Review Problem List Initiated/Reviewed/Updated: Yes - My Orders Last 24 Hours: Active Orders 24 hr Category Date Time Status DC Ayala Catheter [Urinary Catheter Removal] [RC] Per Care 06/01/17 08:18 Ordered Unit Routine POTASSIUM,K [CHEM] AM Lab 06/02/17 05:11 Ordered Enoxaparin [Lovenox] Med 05/31/17 09:00 Active 30 mg SUBCUT DAILY Ketorolac [Toradol] Med 06/01/17 08:30 Ordered 15 mg IVPUSH Q6H Pantoprazole [ProTONIX IV] Med 05/31/17 09:00 Active 40 mg IVPUSH DAILY Medication Orders Albuterol (Ventolin Hfa) 0 gm INH Q4H PRN PRN Reason: Dyspnea Albuterol/Ipratropium (Duoneb 3.0-0.5 Mg/3 Ml) 3 ml NEB QIDRT [facility] Last Admin: 06/01/17 07:03 Dose: 3 ml Admin: 05/31/17 20:28 Dose: Not Given Admin: 05/31/17 14:59 Dose: 3 ml Admin: 05/31/17 11:12 Dose: 3 ml Admin: 05/31/17 08:10 Dose: 3 ml Admin: 05/30/17 22:50 Dose: 3 ml Admin: 05/30/17 22:44 Dose: Enoxaparin Sodium (Lovenox) 30 mg SUBCUT DAILY [facility] Last Admin: 05/31/17 08:35 Dose: 30 mg Lactated Ringer's (Ringers, Lactated) 1,000 mls @ 75 mls/hr IV ASDIRECTED [facility] Last Admin: 06/01/17 06:04 Dose: 100 mls/hr Infusion: 06/01/17 06:04 Dose: 100 mls/hr Infusion: 05/31/17 21:40 Dose: 100 mls/hr Admin: 05/31/17 20:32 Dose: 125 mls/hr Infusion: 05/31/17 20:32 Dose: 125 mls/hr Admin: 05/31/17 12:58 Dose: 125 mls/hr Infusion: 05/31/17 12:28 Dose: 125 mls/hr Admin: 05/31/17 04:28 Dose: 125 mls/hr Ketorolac Tromethamine (Toradol) 15 mg IVPUSH Q6H [facility] Mometasone Furoate/Formoterol Fumar (Dulera 200-5 Mcg) 0 puff IH BID [facility] Last Admin: 05/31/17 20:28 Dose: 2 puff Admin: 05/31/17 08:30 Dose: 1 puff Admin: 05/30/17 22:55 Dose: 2 puff Admin: 05/30/17 08:12 Dose: 2 puff Admin: 05/29/17 21:33 Dose: 1 puff Admin: 05/29/17 09:30 Dose: 2 puff Morphine Sulfate (Morphine) 2 mg IVPUSH Q1H PRN PRN Reason: Pain (severe 7-10) Last Admin: 06/01/17 07:32 Dose: 2 mg Admin: 06/01/17 05:16 Dose: 2 mg Admin: 06/01/17 03:20 Dose: 2 mg Admin: 06/01/17 01:22 Dose: 2 mg Admin: 05/31/17 19:31 Dose: 2 mg Admin: 05/31/17 14:29 Dose: 2 mg Admin: 05/31/17 12:12 Dose: 2 mg Admin: 05/31/17 08:28 Dose: 2 mg Admin: 05/31/17 06:12 Dose: 2 mg Admin: 05/31/17 02:20 Dose: 2 mg Admin: 05/31/17 00:09 Dose: 2 mg Ondansetron HCl (Zofran) 4 mg IVPUSH Q6H PRN PRN Reason: Nausea/Vomiting Pantoprazole Sodium (Protonix Iv) 40 mg IVPUSH DAILY [facility] Last Admin: 05/31/17 08:32 Dose: 40 mg Sodium Chloride (Saline Flush) 10 ml FLUSH ASDIRECTED PRN PRN Reason: Keep Vein Open Last Admin: 05/29/17 00:37 Dose: 10 ml Admin: 05/28/17 23:53 Dose: 10 ml Admin: 05/28/17 23:52 Dose: 10 ml - Assessment Assessment (Free Text/Narrative):: POD#2 Lysis of Adhesions slowly improving but no flatus yet beginning to diurese - Plan Plan (Free Text/Narrative):: DC Ayala Continue NG and slow IV encouraged to ambulate add Torodal for pain
[2017-06-01] MEDS: Ketorolac 15 MG/ML SDV IVPUSH SCH ×3 (09:26→20:17)
[2017-06-01] MEDS: Formoterol/Mometasone 200-5 MCG 8.8 GM Inhaler IH SCH ×2 (09:29→20:33)
[2017-06-01] MEDS: Enoxaparin 30 MG/0.3 ML Syringe SUBCUT SCH (09:30)
[2017-06-01] MEDS: Pantoprazole 40 MG Vial IVPUSH SCH (09:50)
[2017-06-02] MEDS: Ketorolac 15 MG/ML SDV IVPUSH SCH ×4 (02:23→20:27)
[2017-06-02] MEDS: Lactated Ringers 1,000 ML IV SCH (07:21)
[2017-06-02] MEDS: Albuterol/Ipratropium 3.0-0.5 MG/3 ML Neb Soln NEB SCH ×4 (07:30→21:21)
[2017-06-02] MEDS: Morphine 2 MG/ML Syringe IVPUSH PRN ×2 (07:56→17:39)
[2017-06-02] MEDS: Formoterol/Mometasone 200-5 MCG 8.8 GM Inhaler IH SCH ×2 (09:19→20:28)
--- NOTE | 2017-06-02 09:19 | PCM.SURGPN ---
- General Info Date of Service: 06/02/17 Date of Surgery/Procedure: 05/30/17 POD#: 3 Post-Op Diagnosis: Small bowel obstruction Functional Status: Reports: Pain Controlled (with toradol) - Review of Systems General: Denies: Fever, Chills Pulmonary: Reports: No Symptoms Gastrointestinal: Reports: Flatus (last night and this am - no stool yet). Denies: Nausea, Vomiting Genitourinary: Reports: No Symptoms Musculoskeletal: Denies: Leg Pain - Patient Data Vitals - Most Recent: Last Vital Signs Temp 97.6 F 06/02/17 05:30 Pulse 62 06/02/17 05:30 Resp 20 06/02/17 05:30 BP 115/72 06/02/17 05:30 Pulse Ox 96 06/02/17 05:30 Weight - Most Recent: 114 lb I&O - Last 24 Hours: Intake & Output 06/01/17 06/02/17 06/02/17 22:59 06:59 14:59 Intake Total 420 597 90 Output Total 450 1050 Balance -30 -453 90 Lab Results Last 24 Hrs: Laboratory Results - last 24 hr 06/02/17 Range/Units 06:12 Potassium 3.6 (3.5-5.3) mmol/L Med Orders - Current: Current Medications Albuterol (Ventolin Hfa) 0 gm INH Q4H PRN PRN Reason: Dyspnea Albuterol/Ipratropium (Duoneb 3.0-0.5 Mg/3 Ml) 3 ml NEB QIDRT [facility] Last Admin: 06/02/17 07:30 Dose: 3 ml Enoxaparin Sodium (Lovenox) 30 mg SUBCUT DAILY [facility] Last Admin: 06/01/17 09:30 Dose: 30 mg Potassium Chloride/Dextrose/Sod Cl (D5 Ns With 20 Meq Kcl) 1,000 mls @ 75 mls/ hr IV ASDIRECTED [facility] Ketorolac Tromethamine (Toradol) 15 mg IVPUSH Q6H [facility] Last Admin: 06/02/17 02:23 Dose: 15 mg Mometasone Furoate/Formoterol Fumar (Dulera 200-5 Mcg) 0 puff IH BID [facility] Last Admin: 06/01/17 20:33 Dose: 2 puff Morphine Sulfate (Morphine) 2 mg IVPUSH Q1H PRN PRN Reason: Pain (severe 7-10) Last Admin: 06/02/17 07:56 Dose: 2 mg Ondansetron HCl (Zofran) 4 mg IVPUSH Q6H PRN PRN Reason: Nausea/Vomiting Pantoprazole Sodium (Protonix Iv) 40 mg IVPUSH DAILY [facility] Last Admin: 06/01/17 09:50 Dose: 40 mg Sodium Chloride (Saline Flush) 10 ml FLUSH ASDIRECTED PRN PRN Reason: Keep Vein Open Last Admin: 05/29/17 00:37 Dose: 10 ml Discontinued Medications Albuterol/Ipratropium (Duoneb 3.0-0.5 Mg/3 Ml) 3 ml NEB QIDRT [facility] Last Admin: 05/30/17 22:45 Dose: Not Given Hydromorphone HCl (Dilaudid) 2 mg IVPUSH ONETIME ONE Stop: 05/29/17 00:14 Last Admin: 05/29/17 00:35 Dose: 2 mg Hydromorphone HCl (Dilaudid) 1 mg IVPUSH Q2H PRN PRN Reason: Pain (severe 7-10) Last Admin: 05/30/17 13:55 Dose: 1 mg Sodium Chloride (Normal Saline) 1,000 mls @ 999 mls/hr IV .BOLUS ONE Stop: 05/29/17 02:03 Last Admin: 05/29/17 01:18 Dose: 999 mls/hr Lactated Ringer's (Ringers, Lactated) 1,000 mls @ 999 mls/hr IV .BOLUS [facility] Last Admin: 05/29/17 03:39 Dose: 999 mls/hr Potassium Chloride/Dextrose/Sod Cl (D5 1/2 Ns W/ 20 Meq/L Kcl) 1,000 mls @ 100 mls/hr IV ASDIRECTED [facility] Last Admin: 05/29/17 04:50 Dose: 100 mls/hr Dextrose/Lactated Ringer's (Dextrose 5%-Lr) 1,000 mls @ 200 mls/hr IV ASDIRECTED [facility] Dextrose/Lactated Ringer's (Dextrose 5%-Lactated Ringers) 1,000 mls @ 150 mls/ hr IV ASDIRECTED [facility] Last Admin: 05/30/17 16:35 Dose: 150 mls/hr Lactated Ringer's (Ringers, Lactated) 1,000 mls @ 75 mls/hr IV ASDIRECTED [facility] Last Admin: 06/02/17 07:21 Dose: 100 mls/hr Cefazolin Sodium 1 gm/ Sodium (Chloride) 50 mls @ 200 mls/hr IV Q8H [facility] Stop: 05/31/17 05:14 Last Admin: 05/30/17 22:44 Dose: Not Given Cefazolin Sodium 1 gm/ Sodium (Chloride) 50 mls @ 200 mls/hr IV Q8H [facility] Stop: 05/31/17 10:14 Last Admin: 05/31/17 09:54 Dose: 200 mls/hr Influenza Virus Vaccine (Fluzone Quad [id number]) 60 mcg IM .ONCE ONE Stop: 05/29/17 10:10 Iopamidol (Isovue-370 (76%)) 75 ml IV ONETIME ONE Stop: 05/29/17 01:31 Last Admin: 05/29/17 02:00 Dose: 65 ml Morphine Sulfate (Morphine Big Data Analytics Lead 30 Mg In 30 Ml) 30 mg IV ASDIRECTED [facility] PRN Reason: Protocol Morphine Sulfate (Morphine) 2 mg IVPUSH Q3M PRN PRN Reason: Abdominal Pain Non-Formulary Medication (Fluticasone/Salmeterol [Advair 250-50 Diskus]) 1 puff INH BID [facility] Ondansetron HCl (Zofran) 4 mg IVPUSH ONETIME ONE Stop: 05/28/17 23:46 Last Admin: 05/28/17 23:52 Dose: 4 mg Ondansetron HCl (Zofran) 4 mg IV Q4H PRN PRN Reason: Nausea/Vomiting Last Admin: 05/29/17 21:24 Dose: 4 mg Pantoprazole Sodium (Protonix Iv) 40 mg IVPUSH DAILY [facility] Last Admin: 05/30/17 08:13 Dose: 40 mg - Exam Wound/Incisions: Healing Well (moderate bruising around incision but no drainage ) General: Alert, Oriented Lungs: Normal Respiratory Effort GI/Abdominal Exam: Soft, Non-Tender, No Distention Extremities: Non-Tender, No Pedal Edema - Problem List Review Problem List Initiated/Reviewed/Updated: Yes - My Orders Last 24 Hours: Active Orders 24 hr Category Date Time Status Dextrose 5%-Normal Saline with KCl 20 mEq @ 75 mL/Hr ( Med 06/02/17 09:15 Ordered 1000 mL) Dextrose 5%-0.9% NaCl with KCl [D5 NS with 20 mEq KCl] 1,000 ml IV ASDIRECTED Ketorolac [Toradol] Med 06/01/17 08:30 Active 15 mg IVPUSH Q6H Medication Orders Albuterol (Ventolin Hfa) 0 gm INH Q4H PRN PRN Reason: Dyspnea Albuterol/Ipratropium (Duoneb 3.0-0.5 Mg/3 Ml) 3 ml NEB QIDRT [facility] Last Admin: 06/02/17 07:30 Dose: 3 ml Admin: 06/01/17 20:33 Dose: 3 ml Admin: 06/01/17 15:18 Dose: 3 ml Admin: 06/01/17 10:36 Dose: 3 ml Admin: 06/01/17 07:03 Dose: 3 ml Admin: 05/31/17 20:28 Dose: Not Given Admin: 05/31/17 14:59 Dose: 3 ml Admin: 05/31/17 11:12 Dose: 3 ml Admin: 05/31/17 08:10 Dose: 3 ml Admin: 05/30/17 22:50 Dose: 3 ml Admin: 05/30/17 22:44 Dose: Enoxaparin Sodium (Lovenox) 30 mg SUBCUT DAILY [facility] Last Admin: 06/01/17 09:30 Dose: 30 mg Admin: 05/31/17 08:35 Dose: 30 mg Potassium Chloride/Dextrose/Sod Cl (D5 Ns With 20 Meq Kcl) 1,000 mls @ 75 mls/ hr IV ASDIRECTED [facility] Ketorolac Tromethamine (Toradol) 15 mg IVPUSH Q6H [facility] Last Admin: 06/02/17 02:23 Dose: 15 mg Admin: 06/01/17 20:17 Dose: 15 mg Admin: 06/01/17 15:28 Dose: 15 mg Admin: 06/01/17 09:26 Dose: 15 mg Mometasone Furoate/Formoterol Fumar (Dulera 200-5 Mcg) 0 puff IH BID [facility] Last Admin: 06/01/17 20:33 Dose: 2 puff Admin: 06/01/17 09:29 Dose: 1 puff Admin: 05/31/17 20:28 Dose: 2 puff Admin: 05/31/17 08:30 Dose: 1 puff Admin: 05/30/17 22:55 Dose: 2 puff Admin: 05/30/17 08:12 Dose: 2 puff Admin: 05/29/17 21:33 Dose: 1 puff Admin: 05/29/17 09:30 Dose: 2 puff Morphine Sulfate (Morphine) 2 mg IVPUSH Q1H PRN PRN Reason: Pain (severe 7-10) Last Admin: 06/02/17 07:56 Dose: 2 mg Admin: 06/01/17 07:32 Dose: 2 mg Admin: 06/01/17 05:16 Dose: 2 mg Admin: 06/01/17 03:20 Dose: 2 mg Admin: 06/01/17 01:22 Dose: 2 mg Admin: 05/31/17 19:31 Dose: 2 mg Admin: 05/31/17 14:29 Dose: 2 mg Admin: 05/31/17 12:12 Dose: 2 mg Admin: 05/31/17 08:28 Dose: 2 mg Admin: 05/31/17 06:12 Dose: 2 mg Admin: 05/31/17 02:20 Dose: 2 mg Admin: 05/31/17 00:09 Dose: 2 mg Ondansetron HCl (Zofran) 4 mg IVPUSH Q6H PRN PRN Reason: Nausea/Vomiting Pantoprazole Sodium (Protonix Iv) 40 mg IVPUSH DAILY [facility] Last Admin: 06/01/17 09:50 Dose: 40 mg Admin: 05/31/17 08:32 Dose: 40 mg Sodium Chloride (Saline Flush) 10 ml FLUSH ASDIRECTED PRN PRN Reason: Keep Vein Open Last Admin: 05/29/17 00:37 Dose: 10 ml Admin: 05/28/17 23:53 Dose: 10 ml Admin: 05/28/17 23:52 Dose: 10 ml - Assessment Assessment (Free Text/Narrative):: POD#3 Enterolysis beginning to have return of GI function K low normal - Plan Plan (Free Text/Narrative):: Intermittent clamp NG add K to IV
[2017-06-02] MEDS: Enoxaparin 30 MG/0.3 ML Syringe SUBCUT SCH (09:20)
[2017-06-02] MEDS: Pantoprazole 40 MG Vial IVPUSH SCH (09:22)
[2017-06-02] MEDS: Dextrose 5%-0.9% NaCl with KCl 1,000 ML IV SCH (10:15)
[2017-06-03] MEDS: Dextrose 5%-0.9% NaCl with KCl 1,000 ML IV SCH ×2 (00:40→14:03)
[2017-06-03] MEDS: Ketorolac 15 MG/ML SDV IVPUSH SCH ×4 (02:35→20:33)
[2017-06-03] MEDS: Morphine 2 MG/ML Syringe IVPUSH PRN (06:26)
[2017-06-03] MEDS: Albuterol/Ipratropium 3.0-0.5 MG/3 ML Neb Soln NEB SCH ×2 (07:34→12:48)
[2017-06-03] MEDS: Formoterol/Mometasone 200-5 MCG 8.8 GM Inhaler IH SCH ×2 (09:12→20:34)
[2017-06-03] MEDS: Enoxaparin 30 MG/0.3 ML Syringe SUBCUT SCH (09:13)
[2017-06-03] MEDS: Pantoprazole 40 MG Vial IVPUSH SCH (09:14)
[2017-06-03] MEDS ORDERED: Albuterol/Ipratropium 3.0-0.5 MG/3 ML Neb Soln NEB PRN (11:14)
--- NOTE | 2017-06-03 11:20 | PCM.SURGPN ---
- General Info Date of Service: 06/03/17 Date of Surgery/Procedure: 05/30/17 POD#: 4 Functional Status: Reports: Pain Controlled (Only using MS rarely with use of torodal) - Review of Systems Pulmonary: Reports: No Symptoms Gastrointestinal: Reports: Flatus (no BM yet). Denies: Nausea, Vomiting Genitourinary: Reports: No Symptoms Musculoskeletal: Denies: Leg Pain - Patient Data Vitals - Most Recent: Last Vital Signs Temp 97.5 F 06/03/17 07:40 Pulse 64 06/03/17 08:26 Resp 18 06/03/17 07:40 BP 113/77 06/03/17 07:40 Pulse Ox 95 06/03/17 08:26 Weight - Most Recent: 114 lb I&O - Last 24 Hours: Intake & Output 06/02/17 06/03/17 06/03/17 22:59 06:59 14:59 Intake Total 660 592 Output Total 750 700 300 Balance -90 -108 -300 Med Orders - Current: Current Medications Albuterol (Ventolin Hfa) 0 gm INH Q4H PRN PRN Reason: Dyspnea Albuterol/Ipratropium (Duoneb 3.0-0.5 Mg/3 Ml) 3 ml NEB Q6H PRN PRN Reason: Shortness of Breath Enoxaparin Sodium (Lovenox) 30 mg SUBCUT DAILY [facility] Last Admin: 06/03/17 09:13 Dose: 30 mg Potassium Chloride/Dextrose/Sod Cl (D5 Ns With 20 Meq Kcl) 1,000 mls @ 75 mls/ hr IV Q13H [facility] Last Admin: 06/03/17 00:40 Dose: 75 mls/hr Ketorolac Tromethamine (Toradol) 15 mg IVPUSH Q6H [facility] Last Admin: 06/03/17 09:10 Dose: 15 mg Mometasone Furoate/Formoterol Fumar (Dulera 200-5 Mcg) 0 puff IH BID [facility] Last Admin: 06/03/17 09:12 Dose: 1 puff Morphine Sulfate (Morphine) 2 mg IVPUSH Q1H PRN PRN Reason: Pain (severe 7-10) Last Admin: 06/03/17 06:26 Dose: 2 mg Ondansetron HCl (Zofran) 4 mg IVPUSH Q6H PRN PRN Reason: Nausea/Vomiting Pantoprazole Sodium (Protonix Iv) 40 mg IVPUSH DAILY [facility] Last Admin: 06/03/17 09:14 Dose: 40 mg Fluticasone/Salmeterol (Advair Hfa 115-21) 2 puff INH BID [facility] Sodium Chloride (Saline Flush) 10 ml FLUSH ASDIRECTED PRN PRN Reason: Keep Vein Open Last Admin: 05/29/17 00:37 Dose: 10 ml Discontinued Medications Albuterol/Ipratropium (Duoneb 3.0-0.5 Mg/3 Ml) 3 ml NEB QIDRT [facility] Last Admin: 05/30/17 22:45 Dose: Not Given Albuterol/Ipratropium (Duoneb 3.0-0.5 Mg/3 Ml) 3 ml NEB QIDRT [facility] Last Admin: 06/03/17 07:34 Dose: 3 ml Hydromorphone HCl (Dilaudid) 2 mg IVPUSH ONETIME ONE Stop: 05/29/17 00:14 Last Admin: 05/29/17 00:35 Dose: 2 mg Hydromorphone HCl (Dilaudid) 1 mg IVPUSH Q2H PRN PRN Reason: Pain (severe 7-10) Last Admin: 05/30/17 13:55 Dose: 1 mg Sodium Chloride (Normal Saline) 1,000 mls @ 999 mls/hr IV .BOLUS ONE Stop: 05/29/17 02:03 Last Admin: 05/29/17 01:18 Dose: 999 mls/hr Lactated Ringer's (Ringers, Lactated) 1,000 mls @ 999 mls/hr IV .BOLUS [facility] Last Admin: 05/29/17 03:39 Dose: 999 mls/hr Potassium Chloride/Dextrose/Sod Cl (D5 1/2 Ns W/ 20 Meq/L Kcl) 1,000 mls @ 100 mls/hr IV ASDIRECTED [facility] Last Admin: 05/29/17 04:50 Dose: 100 mls/hr Dextrose/Lactated Ringer's (Dextrose 5%-Lr) 1,000 mls @ 200 mls/hr IV ASDIRECTED [facility] Dextrose/Lactated Ringer's (Dextrose 5%-Lactated Ringers) 1,000 mls @ 150 mls/ hr IV ASDIRECTED [facility] Last Admin: 05/30/17 16:35 Dose: 150 mls/hr Lactated Ringer's (Ringers, Lactated) 1,000 mls @ 75 mls/hr IV ASDIRECTED [facility] Last Admin: 06/02/17 07:21 Dose: 100 mls/hr Cefazolin Sodium 1 gm/ Sodium (Chloride) 50 mls @ 200 mls/hr IV Q8H [facility] Stop: 05/31/17 05:14 Last Admin: 05/30/17 22:44 Dose: Not Given Cefazolin Sodium 1 gm/ Sodium (Chloride) 50 mls @ 200 mls/hr IV Q8H [facility] Stop: 05/31/17 10:14 Last Admin: 05/31/17 09:54 Dose: 200 mls/hr Influenza Virus Vaccine (Fluzone Quad [id number]) 60 mcg IM .ONCE ONE Stop: 05/29/17 10:10 Iopamidol (Isovue-370 (76%)) 75 ml IV ONETIME ONE Stop: 05/29/17 01:31 Last Admin: 05/29/17 02:00 Dose: 65 ml Morphine Sulfate (Morphine Corporate Health Consultant 30 Mg In 30 Ml) 30 mg IV ASDIRECTED [facility] PRN Reason: Protocol Morphine Sulfate (Morphine) 2 mg IVPUSH Q3M PRN PRN Reason: Abdominal Pain Non-Formulary Medication (Fluticasone/Salmeterol [Advair 250-50 Diskus]) 1 puff INH BID [facility] Ondansetron HCl (Zofran) 4 mg IVPUSH ONETIME ONE Stop: 05/28/17 23:46 Last Admin: 05/28/17 23:52 Dose: 4 mg Ondansetron HCl (Zofran) 4 mg IV Q4H PRN PRN Reason: Nausea/Vomiting Last Admin: 05/29/17 21:24 Dose: 4 mg Pantoprazole Sodium (Protonix Iv) 40 mg IVPUSH DAILY [facility] Last Admin: 05/30/17 08:13 Dose: 40 mg - Exam Wound/Incisions: Healing Well (moderate bruising), No Drainage General: Alert, Oriented Lungs: Normal Respiratory Effort GI/Abdominal Exam: Soft, Non-Tender, Distended (minimally) Extremities: Non-Tender - Problem List Review Problem List Initiated/Reviewed/Updated: Yes - My Orders Last 24 Hours: Active Orders 24 hr Category Date Time Status Clear Liquid Diet [DIET] Diet 06/03/17 Breakfast Ordered BASIC METABOLIC PANEL,BMP [CHEM] Routine Lab 06/04/17 05:00 Ordered Albuterol/Ipratropium [DuoNeb 3.0-0.5 MG/3 ML] Med 06/03/17 11:14 Ordered 3 ml NEB Q6H PRN Fluticasone/Salmeterol [Advair HFA 115-21] Med 06/03/17 21:00 Ordered 2 puff INH BID NG [Nasogastric Orogastric Tube Removal] [OM.PC] Oth 06/02/17 18:40 Ordered Routine Nasogastric Orogastric Tube Removal [OM.PC] Routine Oth 06/02/17 18:36 Ordered Medication Orders Albuterol (Ventolin Hfa) 0 gm INH Q4H PRN PRN Reason: Dyspnea Albuterol/Ipratropium (Duoneb 3.0-0.5 Mg/3 Ml) 3 ml NEB Q6H PRN PRN Reason: Shortness of Breath Enoxaparin Sodium (Lovenox) 30 mg SUBCUT DAILY [facility] Last Admin: 06/03/17 09:13 Dose: 30 mg Admin: 06/02/17 09:20 Dose: 30 mg Admin: 06/01/17 09:30 Dose: 30 mg Admin: 05/31/17 08:35 Dose: 30 mg Potassium Chloride/Dextrose/Sod Cl (D5 Ns With 20 Meq Kcl) 1,000 mls @ 75 mls/ hr IV Q13H [facility] Last Admin: 06/03/17 00:40 Dose: 75 mls/hr Infusion: 06/02/17 23:35 Dose: 75 mls/hr Admin: 06/02/17 10:15 Dose: 75 mls/hr Ketorolac Tromethamine (Toradol) 15 mg IVPUSH Q6H [facility] Last Admin: 06/03/17 09:10 Dose: 15 mg Admin: 06/03/17 02:35 Dose: 15 mg Admin: 06/02/17 20:27 Dose: 15 mg Admin: 06/02/17 14:28 Dose: 15 mg Admin: 06/02/17 09:17 Dose: 15 mg Admin: 06/02/17 02:23 Dose: 15 mg Admin: 06/01/17 20:17 Dose: 15 mg Admin: 06/01/17 15:28 Dose: 15 mg Admin: 06/01/17 09:26 Dose: 15 mg Mometasone Furoate/Formoterol Fumar (Dulera 200-5 Mcg) 0 puff IH BID [facility] Last Admin: 06/03/17 09:12 Dose: 1 puff Admin: 06/02/17 20:28 Dose: 2 puff Admin: 06/02/17 09:19 Dose: 1 puff Admin: 06/01/17 20:33 Dose: 2 puff Admin: 06/01/17 09:29 Dose: 1 puff Admin: 05/31/17 20:28 Dose: 2 puff Admin: 05/31/17 08:30 Dose: 1 puff Admin: 05/30/17 22:55 Dose: 2 puff Admin: 05/30/17 08:12 Dose: 2 puff Admin: 05/29/17 21:33 Dose: 1 puff Admin: 05/29/17 09:30 Dose: 2 puff Morphine Sulfate (Morphine) 2 mg IVPUSH Q1H PRN PRN Reason: Pain (severe 7-10) Last Admin: 06/03/17 06:26 Dose: 2 mg Admin: 06/02/17 17:39 Dose: 2 mg Admin: 06/02/17 07:56 Dose: 2 mg Admin: 06/01/17 07:32 Dose: 2 mg Admin: 06/01/17 05:16 Dose: 2 mg Admin: 06/01/17 03:20 Dose: 2 mg Admin: 06/01/17 01:22 Dose: 2 mg Admin: 05/31/17 19:31 Dose: 2 mg Admin: 05/31/17 14:29 Dose: 2 mg Admin: 05/31/17 12:12 Dose: 2 mg Admin: 05/31/17 08:28 Dose: 2 mg Admin: 05/31/17 06:12 Dose: 2 mg Admin: 05/31/17 02:20 Dose: 2 mg Admin: 05/31/17 00:09 Dose: 2 mg Ondansetron HCl (Zofran) 4 mg IVPUSH Q6H PRN PRN Reason: Nausea/Vomiting Pantoprazole Sodium (Protonix Iv) 40 mg IVPUSH DAILY [facility] Last Admin: 06/03/17 09:14 Dose: 40 mg Admin: 06/02/17 09:22 Dose: 40 mg Admin: 06/01/17 09:50 Dose: 40 mg Admin: 05/31/17 08:32 Dose: 40 mg Fluticasone/Salmeterol (Advair Hfa 115-21) 2 puff INH BID [facility] Sodium Chloride (Saline Flush) 10 ml FLUSH ASDIRECTED PRN PRN Reason: Keep Vein Open Last Admin: 05/29/17 00:37 Dose: 10 ml Admin: 05/28/17 23:53 Dose: 10 ml Admin: 05/28/17 23:52 Dose: 10 ml - Assessment Assessment (Free Text/Narrative):: POD#4 Enterolysis stable - tolerated NG out during the night - continues to pass flatus but no BM yet - Plan Plan (Free Text/Narrative):: Trial of clear liquids
[2017-06-03] MEDS ORDERED: FLUTICASONE INH SCH (21:00)
[2017-06-03] MEDS ORDERED: SALMETEROL INH SCH (21:00)
[2017-06-04] MEDS: Ketorolac 15 MG/ML SDV IVPUSH SCH (03:30)
[2017-06-04] MEDS: Dextrose 5%-0.9% NaCl with KCl 1,000 ML IV SCH ×2 (03:53→21:00)
[2017-06-04] MEDS ORDERED: Acetaminophen/HYDROcodone 325-5 MG Tab PO PRN (07:17)
--- NOTE | 2017-06-04 07:24 | PCM.SURGPN ---
- General Info Date of Service: 06/04/17 Date of Surgery/Procedure: 05/30/17 POD#: 5 Post-Op Diagnosis: Small Bowel Obstruction secondary to adhesions Functional Status: Reports: Pain Controlled - Review of Systems General: Denies: Fever, Chills Pulmonary: Reports: No Symptoms Gastrointestinal: Reports: Flatus (had BM this am) Musculoskeletal: Reports: No Symptoms - Patient Data Vitals - Most Recent: Last Vital Signs Temp 97.8 F 06/04/17 04:00 Pulse 56 L 06/04/17 04:00 Resp 20 06/04/17 04:00 BP 132/54 L 06/04/17 04:00 Pulse Ox 97 06/04/17 04:00 Weight - Most Recent: 114 lb I&O - Last 24 Hours: Intake & Output 06/03/17 06/04/17 06/04/17 22:59 06:59 14:59 Intake Total 1226 630 Output Total 650 800 Balance 576 -170 Med Orders - Current: Current Medications Hydrocodone Bitart/Acetaminophen ([place] 325-5 Mg) 1 - 2 tab PO Q4H PRN PRN Reason: Pain Albuterol (Ventolin Hfa) 0 gm INH Q4H PRN PRN Reason: Dyspnea Albuterol/Ipratropium (Duoneb 3.0-0.5 Mg/3 Ml) 3 ml NEB Q6H PRN PRN Reason: Shortness of Breath Enoxaparin Sodium (Lovenox) 30 mg SUBCUT DAILY [facility] Last Admin: 06/03/17 09:13 Dose: 30 mg Potassium Chloride/Dextrose/Sod Cl (D5 Ns With 20 Meq Kcl) 1,000 mls @ 50 mls/ hr IV Q13H [facility] Last Admin: 06/04/17 03:53 Dose: 75 mls/hr Mometasone Furoate/Formoterol Fumar (Dulera 200-5 Mcg) 0 puff IH BID [facility] Last Admin: 06/03/17 20:34 Dose: 2 puff Morphine Sulfate (Morphine) 2 mg IVPUSH Q1H PRN PRN Reason: Pain (severe 7-10) Last Admin: 06/03/17 06:26 Dose: 2 mg Ondansetron HCl (Zofran) 4 mg IVPUSH Q6H PRN PRN Reason: Nausea/Vomiting Pantoprazole Sodium (Protonix) 40 mg PO 0600 [facility] Sodium Chloride (Saline Flush) 10 ml FLUSH ASDIRECTED PRN PRN Reason: Keep Vein Open Last Admin: 05/29/17 00:37 Dose: 10 ml Discontinued Medications Albuterol/Ipratropium (Duoneb 3.0-0.5 Mg/3 Ml) 3 ml NEB QIDRT [facility] Last Admin: 05/30/17 22:45 Dose: Not Given Albuterol/Ipratropium (Duoneb 3.0-0.5 Mg/3 Ml) 3 ml NEB QIDRT [facility] Last Admin: 06/03/17 12:48 Dose: Not Given Hydromorphone HCl (Dilaudid) 2 mg IVPUSH ONETIME ONE Stop: 05/29/17 00:14 Last Admin: 05/29/17 00:35 Dose: 2 mg Hydromorphone HCl (Dilaudid) 1 mg IVPUSH Q2H PRN PRN Reason: Pain (severe 7-10) Last Admin: 05/30/17 13:55 Dose: 1 mg Sodium Chloride (Normal Saline) 1,000 mls @ 999 mls/hr IV .BOLUS ONE Stop: 05/29/17 02:03 Last Admin: 05/29/17 01:18 Dose: 999 mls/hr Lactated Ringer's (Ringers, Lactated) 1,000 mls @ 999 mls/hr IV .BOLUS [facility] Last Admin: 05/29/17 03:39 Dose: 999 mls/hr Potassium Chloride/Dextrose/Sod Cl (D5 1/2 Ns W/ 20 Meq/L Kcl) 1,000 mls @ 100 mls/hr IV ASDIRECTED [facility] Last Admin: 05/29/17 04:50 Dose: 100 mls/hr Dextrose/Lactated Ringer's (Dextrose 5%-Lr) 1,000 mls @ 200 mls/hr IV ASDIRECTED [facility] Dextrose/Lactated Ringer's (Dextrose 5%-Lactated Ringers) 1,000 mls @ 150 mls/ hr IV ASDIRECTED [facility] Last Admin: 05/30/17 16:35 Dose: 150 mls/hr Lactated Ringer's (Ringers, Lactated) 1,000 mls @ 75 mls/hr IV ASDIRECTED [facility] Last Admin: 06/02/17 07:21 Dose: 100 mls/hr Cefazolin Sodium 1 gm/ Sodium (Chloride) 50 mls @ 200 mls/hr IV Q8H [facility] Stop: 05/31/17 05:14 Last Admin: 05/30/17 22:44 Dose: Not Given Cefazolin Sodium 1 gm/ Sodium (Chloride) 50 mls @ 200 mls/hr IV Q8H [facility] Stop: 05/31/17 10:14 Last Admin: 05/31/17 09:54 Dose: 200 mls/hr Influenza Virus Vaccine (Fluzone Quad [id number]) 60 mcg IM .ONCE ONE Stop: 05/29/17 10:10 Iopamidol (Isovue-370 (76%)) 75 ml IV ONETIME ONE Stop: 05/29/17 01:31 Last Admin: 05/29/17 02:00 Dose: 65 ml Ketorolac Tromethamine (Toradol) 15 mg IVPUSH Q6H [facility] Last Admin: 06/04/17 03:30 Dose: 15 mg Morphine Sulfate (Morphine Straightedge Worker 30 Mg In 30 Ml) 30 mg IV ASDIRECTED [facility] PRN Reason: Protocol Morphine Sulfate (Morphine) 2 mg IVPUSH Q3M PRN PRN Reason: Abdominal Pain Non-Formulary Medication (Fluticasone/Salmeterol [Advair 250-50 Diskus]) 1 puff INH BID [facility] Ondansetron HCl (Zofran) 4 mg IVPUSH ONETIME ONE Stop: 05/28/17 23:46 Last Admin: 05/28/17 23:52 Dose: 4 mg Ondansetron HCl (Zofran) 4 mg IV Q4H PRN PRN Reason: Nausea/Vomiting Last Admin: 05/29/17 21:24 Dose: 4 mg Pantoprazole Sodium (Protonix Iv) 40 mg IVPUSH DAILY [facility] Last Admin: 05/30/17 08:13 Dose: 40 mg Pantoprazole Sodium (Protonix Iv) 40 mg IVPUSH DAILY [facility] Last Admin: 06/03/17 09:14 Dose: 40 mg Fluticasone/Salmeterol (Advair Hfa 115-21) 2 puff INH BID [facility] Last Admin: 06/03/17 20:34 Dose: Not Given - Exam Wound/Incisions: Healing Well (bruising slowly improving), No Drainage General: Alert, Oriented Lungs: Normal Respiratory Effort GI/Abdominal Exam: Soft, Non-Tender, No Distention Extremities: Non-Tender - Problem List Review Problem List Initiated/Reviewed/Updated: Yes - My Orders Last 24 Hours: Active Orders 24 hr Category Date Time Status Full Liquid Diet [DIET] Diet 06/04/17 Breakfast Ordered BASIC METABOLIC PANEL,BMP [CHEM] Routine Lab 06/04/17 05:00 Ordered Acetaminophen/HYDROcodone [[place] 325-5 MG] Med 06/04/17 07:17 Ordered 1 - 2 tab PO Q4H PRN Albuterol/Ipratropium [DuoNeb 3.0-0.5 MG/3 ML] Med 06/03/17 11:14 Active 3 ml NEB Q6H PRN Pantoprazole [ProTONIX] Med 06/04/17 07:30 Ordered 40 mg PO 0600 Medication Orders Hydrocodone Bitart/Acetaminophen ([place] 325-5 Mg) 1 - 2 tab PO Q4H PRN PRN Reason: Pain Albuterol (Ventolin Hfa) 0 gm INH Q4H PRN PRN Reason: Dyspnea Albuterol/Ipratropium (Duoneb 3.0-0.5 Mg/3 Ml) 3 ml NEB Q6H PRN PRN Reason: Shortness of Breath Enoxaparin Sodium (Lovenox) 30 mg SUBCUT DAILY [facility] Last Admin: 06/03/17 09:13 Dose: 30 mg Admin: 06/02/17 09:20 Dose: 30 mg Admin: 06/01/17 09:30 Dose: 30 mg Admin: 05/31/17 08:35 Dose: 30 mg Potassium Chloride/Dextrose/Sod Cl (D5 Ns With 20 Meq Kcl) 1,000 mls @ 50 mls/ hr IV Q13H [facility] Last Admin: 06/04/17 03:53 Dose: 75 mls/hr Infusion: 06/04/17 03:23 Dose: 75 mls/hr Admin: 06/03/17 14:03 Dose: 75 mls/hr Infusion: 06/03/17 14:00 Dose: 75 mls/hr Admin: 06/03/17 00:40 Dose: 75 mls/hr Infusion: 06/02/17 23:35 Dose: 75 mls/hr Admin: 06/02/17 10:15 Dose: 75 mls/hr Mometasone Furoate/Formoterol Fumar (Dulera 200-5 Mcg) 0 puff IH BID [facility] Last Admin: 06/03/17 20:34 Dose: 2 puff Admin: 06/03/17 09:12 Dose: 1 puff Admin: 06/02/17 20:28 Dose: 2 puff Admin: 06/02/17 09:19 Dose: 1 puff Admin: 06/01/17 20:33 Dose: 2 puff Admin: 06/01/17 09:29 Dose: 1 puff Admin: 05/31/17 20:28 Dose: 2 puff Admin: 05/31/17 08:30 Dose: 1 puff Admin: 05/30/17 22:55 Dose: 2 puff Admin: 05/30/17 08:12 Dose: 2 puff Admin: 05/29/17 21:33 Dose: 1 puff Admin: 05/29/17 09:30 Dose: 2 puff Morphine Sulfate (Morphine) 2 mg IVPUSH Q1H PRN PRN Reason: Pain (severe 7-10) Last Admin: 06/03/17 06:26 Dose: 2 mg Admin: 06/02/17 17:39 Dose: 2 mg Admin: 06/02/17 07:56 Dose: 2 mg Admin: 06/01/17 07:32 Dose: 2 mg Admin: 06/01/17 05:16 Dose: 2 mg Admin: 06/01/17 03:20 Dose: 2 mg Admin: 06/01/17 01:22 Dose: 2 mg Admin: 05/31/17 19:31 Dose: 2 mg Admin: 05/31/17 14:29 Dose: 2 mg Admin: 05/31/17 12:12 Dose: 2 mg Admin: 05/31/17 08:28 Dose: 2 mg Admin: 05/31/17 06:12 Dose: 2 mg Admin: 05/31/17 02:20 Dose: 2 mg Admin: 05/31/17 00:09 Dose: 2 mg Ondansetron HCl (Zofran) 4 mg IVPUSH Q6H PRN PRN Reason: Nausea/Vomiting Pantoprazole Sodium (Protonix) 40 mg PO 0600 [facility] Sodium Chloride (Saline Flush) 10 ml FLUSH ASDIRECTED PRN PRN Reason: Keep Vein Open Last Admin: 05/29/17 00:37 Dose: 10 ml Admin: 05/28/17 23:53 Dose: 10 ml Admin: 05/28/17 23:52 Dose: 10 ml - Assessment Assessment (Free Text/Narrative):: POD#5 Enterolysis - improving - Plan Plan (Free Text/Narrative):: Advance diet
[2017-06-04] MEDS: Pantoprazole 40 MG Tab.CR PO SCH (08:15)
[2017-06-04] MEDS: Enoxaparin 30 MG/0.3 ML Syringe SUBCUT SCH (09:14)
[2017-06-04] MEDS: Formoterol/Mometasone 200-5 MCG 8.8 GM Inhaler IH SCH ×2 (09:15→21:01)
[2017-06-05] MEDS: Pantoprazole 40 MG Tab.CR PO SCH (06:40)
--- NOTE | 2017-06-05 06:41 | PCM.SURGPN ---
- General Info Date of Service: 06/05/17 Date of Surgery/Procedure: 05/30/17 POD#: 6 Post-Op Diagnosis: Small Bowel Obstruction secondary to adhesions Functional Status: Reports: Pain Controlled - Review of Systems General: Denies: Fever Pulmonary: Reports: No Symptoms Gastrointestinal: Reports: Flatus (also having bowel movements). Denies: Abdominal Pain Genitourinary: Denies: Dysuria Musculoskeletal: Denies: Leg Pain - Patient Data Vitals - Most Recent: Last Vital Signs Temp 97.8 F 06/05/17 03:25 Pulse 66 06/04/17 20:00 Resp 18 06/05/17 03:25 BP 122/72 06/05/17 03:25 Pulse Ox 96 06/05/17 03:25 Weight - Most Recent: 114 lb I&O - Last 24 Hours: Intake & Output 06/04/17 06/04/17 06/05/17 14:59 22:59 06:59 Intake Total 498 Output Total 775 850 Balance -277 -850 Lab Results Last 24 Hrs: Laboratory Results - last 24 hr 06/04/17 Range/Units 06:15 Sodium 134 L (135-145) mmol/L Potassium 3.6 (3.5-5.3) mmol/L Chloride 104 D (100-110) mmol/L Carbon Dioxide 25 (23-29) mmol/L BUN 5 L (8-23) mg/dL Creatinine 0.5 L (0.6-1.3) mg/dL Est Cr Clr Drug Dosing 114.91 mL/min Estimated GFR (MDRD) > 60 (>60) BUN/Creatinine Ratio 10.0 (9-20) Glucose 116 (80-116) mg/dL Calcium 8.1 L (8.6-10.2) mg/dL Med Orders - Current: Current Medications Hydrocodone Bitart/Acetaminophen ([place] 325-5 Mg) 1 - 2 tab PO Q4H PRN PRN Reason: Pain Last Admin: 06/04/17 21:01 Dose: 1 tab Albuterol (Ventolin Hfa) 0 gm INH Q4H PRN PRN Reason: Dyspnea Albuterol/Ipratropium (Duoneb 3.0-0.5 Mg/3 Ml) 3 ml NEB Q6H PRN PRN Reason: Shortness of Breath Enoxaparin Sodium (Lovenox) 30 mg SUBCUT DAILY [facility] Last Admin: 06/04/17 09:14 Dose: 30 mg Mometasone Furoate/Formoterol Fumar (Dulera 200-5 Mcg) 0 puff IH BID [facility] Last Admin: 06/04/17 21:01 Dose: 2 puff Morphine Sulfate (Morphine) 2 mg IVPUSH Q1H PRN PRN Reason: Pain (severe 7-10) Last Admin: 06/03/17 06:26 Dose: 2 mg Ondansetron HCl (Zofran) 4 mg IVPUSH Q6H PRN PRN Reason: Nausea/Vomiting Pantoprazole Sodium (Protonix) 40 mg PO DAILY@0600 [facility] Last Admin: 06/04/17 08:15 Dose: 40 mg Sodium Chloride (Saline Flush) 10 ml FLUSH ASDIRECTED PRN PRN Reason: Keep Vein Open Last Admin: 05/29/17 00:37 Dose: 10 ml Discontinued Medications Albuterol/Ipratropium (Duoneb 3.0-0.5 Mg/3 Ml) 3 ml NEB QIDRT [facility] Last Admin: 05/30/17 22:45 Dose: Not Given Albuterol/Ipratropium (Duoneb 3.0-0.5 Mg/3 Ml) 3 ml NEB QIDRT [facility] Last Admin: 06/03/17 12:48 Dose: Not Given Hydromorphone HCl (Dilaudid) 2 mg IVPUSH ONETIME ONE Stop: 05/29/17 00:14 Last Admin: 05/29/17 00:35 Dose: 2 mg Hydromorphone HCl (Dilaudid) 1 mg IVPUSH Q2H PRN PRN Reason: Pain (severe 7-10) Last Admin: 05/30/17 13:55 Dose: 1 mg Sodium Chloride (Normal Saline) 1,000 mls @ 999 mls/hr IV .BOLUS ONE Stop: 05/29/17 02:03 Last Admin: 05/29/17 01:18 Dose: 999 mls/hr Lactated Ringer's (Ringers, Lactated) 1,000 mls @ 999 mls/hr IV .BOLUS [facility] Last Admin: 05/29/17 03:39 Dose: 999 mls/hr Potassium Chloride/Dextrose/Sod Cl (D5 1/2 Ns W/ 20 Meq/L Kcl) 1,000 mls @ 100 mls/hr IV ASDIRECTED [facility] Last Admin: 05/29/17 04:50 Dose: 100 mls/hr Dextrose/Lactated Ringer's (Dextrose 5%-Lr) 1,000 mls @ 200 mls/hr IV ASDIRECTED [facility] Dextrose/Lactated Ringer's (Dextrose 5%-Lactated Ringers) 1,000 mls @ 150 mls/ hr IV ASDIRECTED [facility] Last Admin: 05/30/17 16:35 Dose: 150 mls/hr Lactated Ringer's (Ringers, Lactated) 1,000 mls @ 75 mls/hr IV ASDIRECTED [facility] Last Admin: 06/02/17 07:21 Dose: 100 mls/hr Cefazolin Sodium 1 gm/ Sodium (Chloride) 50 mls @ 200 mls/hr IV Q8H [facility] Stop: 05/31/17 05:14 Last Admin: 05/30/17 22:44 Dose: Not Given Cefazolin Sodium 1 gm/ Sodium (Chloride) 50 mls @ 200 mls/hr IV Q8H [facility] Stop: 05/31/17 10:14 Last Admin: 05/31/17 09:54 Dose: 200 mls/hr Potassium Chloride/Dextrose/Sod Cl (D5 Ns With 20 Meq Kcl) 1,000 mls @ 50 mls/ hr IV Q13H [facility] Last Admin: 06/04/17 21:00 Dose: Not Given Influenza Virus Vaccine (Fluzone Quad [id number]) 60 mcg IM .ONCE ONE Stop: 05/29/17 10:10 Iopamidol (Isovue-370 (76%)) 75 ml IV ONETIME ONE Stop: 05/29/17 01:31 Last Admin: 05/29/17 02:00 Dose: 65 ml Ketorolac Tromethamine (Toradol) 15 mg IVPUSH Q6H [facility] Last Admin: 06/04/17 03:30 Dose: 15 mg Morphine Sulfate (Morphine Interventional Cardiologist 30 Mg In 30 Ml) 30 mg IV ASDIRECTED [facility] PRN Reason: Protocol Morphine Sulfate (Morphine) 2 mg IVPUSH Q3M PRN PRN Reason: Abdominal Pain Non-Formulary Medication (Fluticasone/Salmeterol [Advair 250-50 Diskus]) 1 puff INH BID [facility] Ondansetron HCl (Zofran) 4 mg IVPUSH ONETIME ONE Stop: 05/28/17 23:46 Last Admin: 05/28/17 23:52 Dose: 4 mg Ondansetron HCl (Zofran) 4 mg IV Q4H PRN PRN Reason: Nausea/Vomiting Last Admin: 05/29/17 21:24 Dose: 4 mg Pantoprazole Sodium (Protonix Iv) 40 mg IVPUSH DAILY [facility] Last Admin: 05/30/17 08:13 Dose: 40 mg Pantoprazole Sodium (Protonix Iv) 40 mg IVPUSH DAILY [facility] Last Admin: 06/03/17 09:14 Dose: 40 mg Fluticasone/Salmeterol (Advair Hfa 115-21) 2 puff INH BID [facility] Last Admin: 06/03/17 20:34 Dose: Not Given - Exam Wound/Incisions: Healing Well (moderate bruising slowly improving), No Drainage General: Alert, Oriented Lungs: Normal Respiratory Effort GI/Abdominal Exam: Soft, Non-Tender Extremities: Non-Tender - Problem List Review Problem List Initiated/Reviewed/Updated: Yes - My Orders Last 24 Hours: Active Orders 24 hr Category Date Time Status Ready for Discharge [RC] PER UNIT ROUTINE Care 06/05/17 06:38 Ordered Adult Diet [DIET] Diet 06/05/17 Breakfast Active Acetaminophen/HYDROcodone [[place] 325-5 MG] Med 06/04/17 07:17 Active 1 - 2 tab PO Q4H PRN Pantoprazole [ProTONIX] Med 06/04/17 07:30 Active 40 mg PO DAILY@0600 Convert IV to Saline Lock [OM.PC] Routine Oth 06/04/17 17:22 Ordered Medication Orders Hydrocodone Bitart/Acetaminophen ([place] 325-5 Mg) 1 - 2 tab PO Q4H PRN PRN Reason: Pain Last Admin: 06/04/17 21:01 Dose: 1 tab Albuterol (Ventolin Hfa) 0 gm INH Q4H PRN PRN Reason: Dyspnea Albuterol/Ipratropium (Duoneb 3.0-0.5 Mg/3 Ml) 3 ml NEB Q6H PRN PRN Reason: Shortness of Breath Enoxaparin Sodium (Lovenox) 30 mg SUBCUT DAILY [facility] Last Admin: 06/04/17 09:14 Dose: 30 mg Admin: 06/03/17 09:13 Dose: 30 mg Admin: 06/02/17 09:20 Dose: 30 mg Admin: 06/01/17 09:30 Dose: 30 mg Admin: 05/31/17 08:35 Dose: 30 mg Mometasone Furoate/Formoterol Fumar (Dulera 200-5 Mcg) 0 puff IH BID [facility] Last Admin: 06/04/17 21:01 Dose: 2 puff Admin: 06/04/17 09:15 Dose: 1 puff Admin: 06/03/17 20:34 Dose: 2 puff Admin: 06/03/17 09:12 Dose: 1 puff Admin: 06/02/17 20:28 Dose: 2 puff Admin: 06/02/17 09:19 Dose: 1 puff Admin: 06/01/17 20:33 Dose: 2 puff Admin: 06/01/17 09:29 Dose: 1 puff Admin: 05/31/17 20:28 Dose: 2 puff Admin: 05/31/17 08:30 Dose: 1 puff Admin: 05/30/17 22:55 Dose: 2 puff Admin: 05/30/17 08:12 Dose: 2 puff Admin: 05/29/17 21:33 Dose: 1 puff Admin: 05/29/17 09:30 Dose: 2 puff Morphine Sulfate (Morphine) 2 mg IVPUSH Q1H PRN PRN Reason: Pain (severe 7-10) Last Admin: 06/03/17 06:26 Dose: 2 mg Admin: 06/02/17 17:39 Dose: 2 mg Admin: 06/02/17 07:56 Dose: 2 mg Admin: 06/01/17 07:32 Dose: 2 mg Admin: 06/01/17 05:16 Dose: 2 mg Admin: 06/01/17 03:20 Dose: 2 mg Admin: 06/01/17 01:22 Dose: 2 mg Admin: 05/31/17 19:31 Dose: 2 mg Admin: 05/31/17 14:29 Dose: 2 mg Admin: 05/31/17 12:12 Dose: 2 mg Admin: 05/31/17 08:28 Dose: 2 mg Admin: 05/31/17 06:12 Dose: 2 mg Admin: 05/31/17 02:20 Dose: 2 mg Admin: 05/31/17 00:09 Dose: 2 mg Ondansetron HCl (Zofran) 4 mg IVPUSH Q6H PRN PRN Reason: Nausea/Vomiting Pantoprazole Sodium (Protonix) 40 mg PO DAILY@0600 [facility] Last Admin: 06/04/17 08:15 Dose: 40 mg Sodium Chloride (Saline Flush) 10 ml FLUSH ASDIRECTED PRN PRN Reason: Keep Vein Open Last Admin: 05/29/17 00:37 Dose: 10 ml Admin: 05/28/17 23:53 Dose: 10 ml Admin: 05/28/17 23:52 Dose: 10 ml - Assessment Assessment (Free Text/Narrative):: POD#6 Enterolysis - doing well - Plan Plan (Free Text/Narrative):: Discharge follow up in 3 days for staple removal Rx Hydrocodone for pain
[2017-06-05 12:08] VITALS: BP 112/59
== END 2017-06-05 10:30 | disposition home or self-care (01) | DRG 224 ==
LOC: FB.ED 23:39 → FB.MS 05-29 03:10 → UNDOADMIN 05-29 03:10
PROVIDERS: ADMIT Emergency Medicine; ATTEND Surgery
PROC: 0DN80ZZ Release Small Intestine, Open Approach (ICD-10-PCS; principal; 2017-05-30)
DX: K56.52 Intestinal adhesions [bands] with complete obstruction (principal); R11.10 Vomiting, unspecified; E87.1 Hypo-osmolality and hyponatremia; E86.0 Dehydration; J44.9 Chronic obstructive pulmonary disease, unspecified; E03.9 Hypothyroidism, unspecified; Z87.891 Personal history of nicotine dependence; Z79.82 Long term (current) use of aspirin; Z88.1 Allergy status to other antibiotic agents; Z88.8 Allergy status to other drugs, medicaments and biological substances; L98.8 Other specified disorders of the skin and subcutaneous tissue; E87.6 Hypokalemia; R64 Cachexia; Z68.20 Body mass index [BMI] 20.0-20.9, adult
CPT/HCPCS: 36415; 43752; 51798; 71010; 71020; 74177; 80048; 80053; 81001; 83605; 84132; 84295; 84484; 85025; 85027; 85610; 85730; 87040; 88305; 94150; 94640; 96361; 96374; 96375; 99285; A9270-GY; C9113; J0131; J0330; J0690; J1100; J1170; J1650; J1885; J2250; J2270; J2370; J2405; J2704; J2710; J3010; J3480; J7040; J7042; J7050; J7120; J7620; Q9967